=== PATIENT | male | born 1980 | race Two or more races ===

== ENCOUNTER 2018-01-13 12:04 | Emergency (ER) | payer SELFPAY ==
[~2018-01-13] VITALS: Ht 185.4 cm; Wt 78.0 kg
[2018-01-13 12:26] VITALS: BP 130/83
--- NOTE | 2018-01-13 13:08 | Emergency Room Report ---
History of Present Illness General Chief Complaint: Lower Back Pain or Injury Source: Patient Present Illness HPI 37-year-old male presents to the emergency department complaining of 9 out of 10 in severity back pain that radiates across the lower back 4 days. Patient reports that he has had similar symptoms several times a year for 2 years. Patient denies recent trauma or fall. He denies strenuous activities, recent spinal procedures or history of cancer. Patient denies fevers, chills, saddle anesthesia, urinary retention or urinary incontinence. Patient states that he has been taking Tylenol and using icy hot patches which provided no relief. He states his pain is exacerbated upon sitting in a chair or bending over. Patient reports pain is somewhat relieved with lying flat or standing up straight. Allergies: Coded Allergies: No Known Allergies (Unverified , 01/13/18) Patient History Past Medical History: see triage record Past Surgical History: none Pertinent Family History: none Reviewed Nursing Documentation: PMH: Agreed; PSxH: Agreed Nursing Documentation-PMH Past Medical History: No Stated History Review of Systems All Other Systems: negative except mentioned in HPI Physical Exam Vital Signs Date Time Temp Pulse Resp B/P (MAP) Pulse Ox O2 Delivery O2 Flow Rate FiO2 01/13/18 12:16 98.9 79 18 130/83 96 Room Air 99.0 Sp02 EP Interpretation: reviewed, normal General Appearance: no apparent distress, alert, GCS 15, non-toxic Head: normocephalic, atraumatic ENT: hearing grossly normal, normal voice Neck: full range of motion Respiratory: lungs clear, normal breath sounds, speaking full sentences Cardiovascular #1: regular rate, rhythm Musculoskeletal: back normal, gait/station normal, normal range of motion, tender - TTP to the lumbar paraspinal musculature, no midline spinous process ttp, FROM with some pain, ambulatory, no obvious step-off or deformities. no rashes, erythema, warmth or bruises. Neurologic: alert, oriented x3, responsive, motor strength/tone normal, sensory intact, normal gait, speech normal, grossly normal Psychiatric: judgement/insight normal Skin: normal color, no rash, warm/dry, well hydrated Medical Decision Making PA Attestation Dr. Díaz is my supervising Physician whom patient management has been discussed with. Diagnostic Impression: Primary Impression: Acute lumbosacral myofascial strain Qualified Codes: S39.012A - Strain of muscle, fascia and tendon of lower back , initial encounter Additional Impression: Back pain Qualified Codes: M54.5 - Low back pain ER Course 37-year-old male presents to the emergency department complaining of 9 out of 10 in severity back pain that radiates across the lower back 4 days. Patient reports that he has had similar symptoms several times a year for 2 years. Patient denies recent trauma or fall. He denies strenuous activities, recent spinal procedures or history of cancer. Patient denies fevers, chills, saddle anesthesia, urinary retention or urinary incontinence. Patient states that he has been taking Tylenol and using icy hot patches which provided no relief. He states his pain is exacerbated upon sitting in a chair or bending over. Patient reports pain is somewhat relieved with lying flat or standing up straight. Ddx considered: epidural abscess, fracture, sprain/strain, meningitis, spinal chord injury, sciatica, cauda equina, Pyelonephritis, renal calculi just to name a few. Vital signs reviewed and are WNL during ED visit. Pt. is afebrile with no signs of infection No new symptoms, and denies recent trauma. No saddle anesthesia noted, Pt. denies incontinence Neurovascular is intact Mild Tenderness to palpation to paraspinal muscles of the lower back with no midline tenderness. Pt. describes pain today as constant dull ache that is moderate and radiates across the lower back. ORDERS: none warranted at this time. INTERVENTIONS: - Lidoderm patch -Motrin PO -I do not identify an emergent condition at this time. With current presentation , pt. is stable for close outpatient follow up and conservative treatment. D/ w pt. to return promptly to ED with worsening or new symptoms.- Pt. verbalizes' understanding and agreement with proposed treatment plan.proposed treatment plan. DISCHARGE: At this time pt. is stable for d/c to home. Will provide printed patient care instructions, and any necessary prescriptions. Care plan and follow up instructions have been discussed with the patient prior to discharge. Last Vital Signs Date Time Temp Pulse Resp B/P (MAP) Pulse Ox O2 Delivery O2 Flow Rate FiO2 01/13/18 12:26 99.0 18 130/83 96 Room Air 99.0 01/13/18 12:16 79 Disposition: HOME, SELF-CARE Condition: Stable Scripts Lidocaine (Lidoderm) 1 Each Adh..patch 1 PATCH TOPIC DAILY, #30 PATCH 0 Refills Patch(es) may remain in place for up to 12 hours in any 24-hour period. Prov: Valeria Epps 01/13/18 Ibuprofen* (MOTRIN*) 600 Mg Tablet 600 MG ORAL THREE TIMES A DAY, #30 TAB 0 Refills Prov: Valeria Epps 01/13/18 Methocarbamol* (ROBAXIN*) 500 Mg Tablet 1000 MG PO TID, #42 TAB 0 Refills Prov: Valeria Epps 01/13/18 Referrals: NOT CHOSEN IPA/MD,REFERRING (PCP) Patient Instructions: Lumbosacral Strain Additional Instructions: Take medications as directed. Follow up with a Primary Care Provider in 3-5 days, even if your symptoms have resolved. --Please review list of primary care clinics, if you do not already have a primary care provider Return sooner to ED if new symptoms occur, or current symptoms become worse. Do not drink alcohol, drive, or operate heavy machinery while taking Robaxin ( Muscle Relaxers) as this may cause drowsiness. - Please note that this Emergency Department Report was dictated using [employer] and winding supervisor technology software, occasionally this can lead to erroneous entry secondary to interpretation by the dictation equipment. Valeria Epsp Jan 13, 2018 13:08
[2018-01-13] MEDS ORDERED: ROBAXIN500 MG PO (13:10)
[2018-01-13] MEDS ORDERED: IBUPROFEN600 MG ORAL (13:10)
[2018-01-13] MEDS ORDERED: LIDODERM700 M1 TOPIC (13:10)
[2018-01-13 13:22] VITALS: BP 130/83
== END 2018-01-13 13:23 | disposition home or self-care (01) ==
LOC: EMR 12:39
DX: S39.012A Strain of muscle, fascia and tendon of lower back, initial encounter (principal); X58.XXXA Exposure to other specified factors, initial encounter; Y93.9 Activity, unspecified; Y92.9 Unspecified place or not applicable
CPT/HCPCS: 99283